=== PATIENT | male | born 1975 | race Caucasian/White ===

== ENCOUNTER 2022-07-27 03:17 | Inpatient (IN) | payer OTHER ==
[~2022-07-27] VITALS: Ht 185.4 cm; Wt 97.7 kg
[2022-07-27 04:25] LABS: Basophils # (auto) 0.1 10 ^3/uL (0-0.2); Basophils % (auto) 0.4 % (0.0-2.0); Eosinophils # (auto) 0 10 ^3/uL (0-0.8); Eosinophils % (auto) 0.3 % (0.0-7.0); Hematocrit 53.1 % (41.0-53.0); Hemoglobin 17.9 g/dL (13.5-17.5); Lymphocytes # (auto) 1.8 10 ^3/uL (0.4-5.4); Lymphocytes % (auto) 13.4 % (10.0-50.0); Mean Corpuscular Hemoglobin 32.2 pg (28.0-32.0); Mean Corpuscular Hgb Conc. 33.7 g/dL (32.0-36.0); Mean Corpuscular Volume 95.6 fL (80.0-100.0); Monocytes # (auto) 0.9 10 ^3/uL (0-1.3); Monocytes % (auto) 6.9 % (0.0-12.0); Neutrophils # (auto) 10.8 10 ^3/uL (1.6-8.6); Nucleated Red Blood Cells % 0.1 %; Red Blood Cells 5.56 10^6/uL (4.5-5.90); Red Cell Distribution Width 14.8 % (11.8-14.3); White Blood Cell 13.7 10^3/uL (4.4-10.8)
[2022-07-27 04:39] LABS: Calcium 9.5 mg/dL (8.5-10.1); Potassium 4.2 mmol/L (3.5-5.1)
[2022-07-27 04:42] LABS: BUN/Creatinine Ratio 22.5
[2022-07-27 04:45] LABS: Bilirubin, Total 1.6 mg/dL (0.2-1.0)
[2022-07-27] MEDS ORDERED: metroNIDAZOLE 500MG/100ML 100 ML IV ONE (07:15)
[2022-07-27] MEDS ORDERED: cefTRIAXone 1GM/50ML D5W 50 ML IV ONE (07:15)
[2022-07-27] MEDS ORDERED: SODIUM CHLORIDE 0.9% 1,000 ML IV ONE ×2 (07:15)
[2022-07-27] MEDS ORDERED: MORPHINE SULFATE 4 MG/ML SYR/VIAL IV ONE (07:15)
[2022-07-27] MEDS ORDERED: ONDANSETRON HCL 4 MG/2 ML VIAL IV ONE (07:15)
[2022-07-27 11:50] LABS: Amylase 50 U/L (25-115); Lipase 192 U/L (73-393)
[2022-07-27 12:33] LABS: INR 1.03 (0.9-1.15); Partial Thromboplastin Time 28.2 sec (24.6-33.4)
[2022-07-27] MEDS: SODIUM CHLORIDE 0.9% 1,000 ML IV SCH ×2 (13:15→23:12)
[2022-07-27] MEDS ORDERED: ACETAMINOPHEN 325 MG TAB PO PRN (13:15)
[2022-07-27] MEDS ORDERED: PANTOPRAZOLE 40 MG/10 ML VIAL INJ IV ONE (13:30)
[2022-07-27 14:32] LABS: Cholesterol 194 mg/dL (< 200); HDL Cholesterol 22 mg/dL (40-59); Triglycerides > 1000 mg/dL (< 150)
[2022-07-27] MEDS: HYDROcodone-ACET 5/325MG TAB PO PRN (14:42)
[2022-07-27] MEDS: metroNIDAZOLE 500MG/100ML 100 ML IV SCH ×2 (14:50→22:27)
[2022-07-27] MEDS: MORPHINE SULFATE INJ 2 MG/ml SYRG IV PRN (20:38)
[2022-07-27 20:51] LABS: Urine Bacteria NONE SEEN /hpf (None Seen); Urine Blood 1+ /uL (Negative); Urine Mucus FEW (None Seen); Urine Specific Gravity 1.037 (1.001-1.035); Urine WBC 1 /hpf (0 - 3)
[2022-07-27 21:08] LABS: Amphetamine Screen, Urine NEGATIVE (NEGATIVE); Barbiturate Scree,Urine NEGATIVE (NEGATIVE); Benzodiazephine Screen, Urine NEGATIVE (NEGATIVE); Cannabinoid Screen, Urine NEGATIVE (NEGATIVE); Cocaine Screen, Urine NEGATIVE (NEGATIVE); Opiate Scree,Urine POSITIVE (NEGATIVE); Phencyclidine Screen, Urine NEGATIVE (NEGATIVE)
[2022-07-28] MEDS: MORPHINE SULFATE INJ 2 MG/ml SYRG IV PRN (01:52)
[2022-07-28 03:44] LABS: Basophils # (auto) 0 10 ^3/uL (0-0.2); Basophils % (auto) 0.2 % (0.0-2.0); Eosinophils # (auto) 0.1 10 ^3/uL (0-0.8); Eosinophils % (auto) 0.6 % (0.0-7.0); Hematocrit 47.5 % (41.0-53.0); Hemoglobin 16.4 g/dL (13.5-17.5); Lymphocytes # (auto) 1.2 10 ^3/uL (0.4-5.4); Mean Corpuscular Hemoglobin 33.7 pg (28.0-32.0); Mean Corpuscular Hgb Conc. 34.6 g/dL (32.0-36.0); Mean Corpuscular Volume 97.5 fL (80.0-100.0); Monocytes # (auto) 0.7 10 ^3/uL (0-1.3); Monocytes % (auto) 6.6 % (0.0-12.0); Neutrophils # (auto) 8.1 10 ^3/uL (1.6-8.6); Neutrophils % (auto) 80.6 % (37.0-80.0); Red Blood Cells 4.87 10^6/uL (4.5-5.90); Red Cell Distribution Width 14.6 % (11.8-14.3); White Blood Cell 10.1 10^3/uL (4.4-10.8)
[2022-07-28 03:58] LABS: Calcium 9.3 mg/dL (8.5-10.1)
[2022-07-28 04:00] LABS: BUN/Creatinine Ratio 18.7
[2022-07-28] MEDS: metroNIDAZOLE 500MG/100ML 100 ML IV SCH (05:21)
[2022-07-28 08:08] VITALS: BP 120/84
[2022-07-28] MEDS: PANTOPRAZOLE 40 MG/10 ML VIAL INJ IV SCH (08:25)
[2022-07-28] MEDS: NICOTINE 7MG/24HR TOPICAL PATCH TD SCH ×2 (08:32→10:34)
[2022-07-28 09:00] VITALS: BP 120/84
[2022-07-28] MEDS ORDERED: cefTRIAXone 1GM/50ML D5W 50 ML IV SCH (09:00)
[2022-07-28] MEDS: SODIUM CHLORIDE 0.9% 1,000 ML IV SCH ×2 (10:33→19:15)
[2022-07-28 13:00] VITALS: BP 137/82
[2022-07-28] MEDS: HYDROcodone-ACET 5/325MG TAB PO PRN (19:58)
[2022-07-28 20:00] VITALS: BP 133/79
[2022-07-28 22:00] VITALS: BP 133/79
[2022-07-29 04:52] VITALS: BP 125/88
[2022-07-29] MEDS: SODIUM CHLORIDE 0.9% 1,000 ML IV SCH (05:15)
[2022-07-29 06:43] LABS: Basophils # (auto) 0 10 ^3/uL (0-0.2); Basophils % (auto) 0.7 % (0.0-2.0); Eosinophils # (auto) 0.2 10 ^3/uL (0-0.8); Eosinophils % (auto) 2.8 % (0.0-7.0); Hematocrit 43.2 % (41.0-53.0); Hemoglobin 14.7 g/dL (13.5-17.5); Lymphocytes # (auto) 1.4 10 ^3/uL (0.4-5.4); Lymphocytes % (auto) 23.6 % (10.0-50.0); Mean Corpuscular Hemoglobin 33.4 pg (28.0-32.0); Mean Corpuscular Hgb Conc. 34.1 g/dL (32.0-36.0); Mean Corpuscular Volume 97.9 fL (80.0-100.0); Monocytes # (auto) 0.4 10 ^3/uL (0-1.3); Monocytes % (auto) 6.7 % (0.0-12.0); Neutrophils # (auto) 3.9 10 ^3/uL (1.6-8.6); Neutrophils % (auto) 66.2 % (37.0-80.0); Nucleated Red Blood Cells % 0.2 %; Red Blood Cells 4.41 10^6/uL (4.5-5.90); Red Cell Distribution Width 14.7 % (11.8-14.3); White Blood Cell 5.8 10^3/uL (4.4-10.8)
[2022-07-29 06:53] LABS: Albumin 2.6 g/dL (3.4-5.0); Calcium 8.5 mg/dL (8.5-10.1); Potassium 3.8 mmol/L (3.5-5.1)
[2022-07-29 06:56] LABS: Total Protein 5.6 g/dL (6.4-8.2)
[2022-07-29 08:00] VITALS: BP 139/97
[2022-07-29] MEDS: PANTOPRAZOLE 40 MG/10 ML VIAL INJ IV SCH (08:43)
[2022-07-29] MEDS: NICOTINE 7MG/24HR TOPICAL PATCH TD SCH (08:46)
[2022-07-29 09:00] VITALS: BP 139/97
[2022-07-29 10:26] LABS: Hepatitis B Surface Antibody Negative (Negative)
[2022-07-29 11:03] LABS: Hepatitis A Total Antibody Positive (Negative)
[2022-07-29] MEDS ORDERED: PANT40TA2 PO (12:48)
[2022-07-29] MEDS ORDERED: GEMF-19 PO (12:51)
[2022-07-29 13:16] LABS: Hepatitis C Antibody Negative (Negative)
[2022-07-29 13:18] VITALS: BP 114/68
== END 2022-07-29 14:07 | disposition home or self-care (01) | DRG 440 ==
LOC: ER 03:22 → OVERFLOW 13:10 → WEST WING 07-28 04:15
PROVIDERS: ADMIT Registered Nurse; ATTEND Internal Medicine
DX: K85.90 Acute pancreatitis without necrosis or infection, unspecified (principal); K52.9 Noninfective gastroenteritis and colitis, unspecified; E78.1 Pure hyperglyceridemia; K76.0 Fatty (change of) liver, not elsewhere classified; Z79.899 Other long term (current) drug therapy; F17.210 Nicotine dependence, cigarettes, uncomplicated; R79.89 Other specified abnormal findings of blood chemistry; Z20.822 Contact with and (suspected) exposure to COVID-19
CPT/HCPCS: 36415; 71045; 74176; 76705; 80048; 80053; 80061; 80307; 80320; 81001; 82150; 83036; 83605; 83690; 84443; 84484; 85025; 85610; 85730; 86704; 86706; 86708; 86803; 87040; 87340; 87426; 93005; 96361; 96365; 96375; C9113; G0378; J0696; J2405; J3490

== ENCOUNTER 2022-08-16 12:59 | Inpatient (IN) | payer OTHER ==
[~2022-08-16] VITALS: Ht 185.4 cm; Wt 113.0 kg
[~2022-08-16 12:59] MED LIST: GEMF-19 PO; PANT40TA2 PO
[2022-08-16 14:26] LABS: Albumin 4.1 g/dL (3.4-5.0); BUN/Creatinine Ratio 11.1; Calcium 9.2 mg/dL (8.5-10.1); Potassium 3.9 mmol/L (3.5-5.1)
[2022-08-16 14:29] LABS: Basophils # (auto) 0 10 ^3/uL (0-0.2); Basophils % (auto) 0.7 % (0.0-2.0); Eosinophils # (auto) 0.1 10 ^3/uL (0-0.8); Eosinophils % (auto) 1.1 % (0.0-7.0); Hematocrit 48.3 % (41.0-53.0); Hemoglobin 16.8 g/dL (13.5-17.5); Lymphocytes # (auto) 1.6 10 ^3/uL (0.4-5.4); Lymphocytes % (auto) 28.8 % (10.0-50.0); Mean Corpuscular Hemoglobin 33.6 pg (28.0-32.0); Mean Corpuscular Hgb Conc. 34.9 g/dL (32.0-36.0); Mean Corpuscular Volume 96.4 fL (80.0-100.0); Monocytes # (auto) 0.4 10 ^3/uL (0-1.3); Monocytes % (auto) 6.9 % (0.0-12.0); Neutrophils # (auto) 3.5 10 ^3/uL (1.6-8.6); Neutrophils % (auto) 62.5 % (37.0-80.0); Nucleated Red Blood Cells % 0.4 %; Red Blood Cells 5.01 10^6/uL (4.5-5.90); Red Cell Distribution Width 14.5 % (11.8-14.3); White Blood Cell 5.6 10^3/uL (4.4-10.8)
[2022-08-16 14:34] LABS: Bilirubin, Total 0.6 mg/dL (0.2-1.0); Total Protein 7.1 g/dL (6.4-8.2)
[2022-08-16 16:36] LABS: Urine Bacteria NONE SEEN /hpf (None Seen); Urine Blood Negative /uL (Negative); Urine Mucus FEW (None Seen); Urine Specific Gravity 1.016 (1.001-1.035); Urine WBC <1 /hpf (0 - 3)
[2022-08-16] MEDS ORDERED: ASPirin 81 mg TAB PO ONE (20:45)
[2022-08-16] MEDS ORDERED: SODIUM CHLORIDE 0.9% 1,000 ML IV ONE (22:45)
[2022-08-16] MEDS ORDERED: LORazepam 2MG/ML-1ML VIAL IV ONE (22:45)
[2022-08-17] MEDS ORDERED: ACETAMINOPHEN 325 MG TAB PO PRN (00:45)
[2022-08-17] MEDS ORDERED: SODIUM CHLORIDE 0.9% 1,000 ML IV SCH (00:45)
[2022-08-17] MEDS ORDERED: MORPHINE SULFATE 4 MG/ML SYR/VIAL IV PRN (00:45)
[2022-08-17] MEDS ORDERED: LORazepam 0.5 MG TAB PO PRN (00:45)
[2022-08-17] MEDS ORDERED: NITROGLYCERIN 0.4 MG SL TAB SL PRN (00:45)
[2022-08-17] MEDS ORDERED: ONDANSETRON HCL 4 MG/2 ML VIAL IV PRN (00:45)
[2022-08-17] MEDS ORDERED: ALUM & MAG HYDROX-SIMETH LIQ(MAALOX) 30 ML PO ONE (00:45)
[2022-08-17] MEDS ORDERED: ZOLPIDEM TARTRATE 5 MG TAB PO PRN (00:45)
[2022-08-17] MEDS ORDERED: ENOXAPARIN SOD 100 MG/1 ML SYRINGE SC SCH (01:00)
[2022-08-17 06:31] LABS: Basophils # (auto) 0 10 ^3/uL (0-0.2); Basophils % (auto) 0.6 % (0.0-2.0); Eosinophils # (auto) 0.1 10 ^3/uL (0-0.8); Hemoglobin 15.5 g/dL (13.5-17.5); Lymphocytes # (auto) 1.2 10 ^3/uL (0.4-5.4); Monocytes # (auto) 0.4 10 ^3/uL (0-1.3); Monocytes % (auto) 8.2 % (0.0-12.0)
[2022-08-17 06:32] LABS: Calcium 9.1 mg/dL (8.5-10.1); Potassium 4.1 mmol/L (3.5-5.1)
[2022-08-17 06:34] LABS: BUN/Creatinine Ratio 18.6
[2022-08-17 06:36] LABS: Eosinophils % (auto) 2.8 % (0.0-7.0); Hematocrit 44.9 % (41.0-53.0); Lymphocytes % (auto) 25.2 % (10.0-50.0); Mean Corpuscular Hemoglobin 33.9 pg (28.0-32.0); Mean Corpuscular Hgb Conc. 34.5 g/dL (32.0-36.0); Mean Corpuscular Volume 98.4 fL (80.0-100.0); Neutrophils % (auto) 63.2 % (37.0-80.0); Nucleated Red Blood Cells % 0.3 %; Red Blood Cells 4.56 10^6/uL (4.5-5.90); Red Cell Distribution Width 14.3 % (11.8-14.3); White Blood Cell 4.8 10^3/uL (4.4-10.8)
[2022-08-17 07:00] VITALS: BP 136/88
[2022-08-17] MEDS ORDERED: DOCUSATE SOD 100 MG CAP PO SCH (10:00)
[2022-08-17] MEDS ORDERED: METOPROLOL TARTRATE 25 MG TAB PO SCH (10:00)
[2022-08-17] MEDS ORDERED: ASPirin 81 mg TAB PO SCH (10:00)
[2022-08-17] MEDS ORDERED: LISINOPRIL 10 MG TAB PO SCH (10:00)
[2022-08-17] MEDS ORDERED: PANTOPRAZOLE 40 MG TAB PO SCH (10:00)
[2022-08-17] MEDS ORDERED: GEMFIBROZIL 600 MG TAB PO SCH (10:00)
[2022-08-17] MEDS ORDERED: CLOPIDOGREL BISULFATE 75 MG TAB PO SCH (10:00)
[2022-08-17] MEDS ORDERED: ATORVASTATIN 20 MG TAB PO SCH (22:00)
== END 2022-08-17 09:45 | disposition left against medical advice (07) | DRG 311 ==
LOC: ER 12:59 → TELE 08-17 00:41
PROVIDERS: ADMIT Hospitalist; ATTEND Student in an Organized Health Care Education/Training Program
DX: I24.9 Acute ischemic heart disease, unspecified (principal); F17.210 Nicotine dependence, cigarettes, uncomplicated; Z53.21 Procedure and treatment not carried out due to patient leaving prior to being seen by health care provider
CPT/HCPCS: 36415; 71045; 80048; 80053; 81001; 84484; 85025; 85379; 87426; 93005; 96361; 96372; 96374; 96375; G0378; J2405

== ENCOUNTER 2022-09-12 08:47 | Inpatient (IN) | payer MEDICAID, OTHER ==
[~2022-09-12] VITALS: Ht 185.4 cm; Wt 94.9 kg
[2022-09-12 09:33] LABS: Basophils # (auto) 0 10 ^3/uL (0-0.2); Eosinophils # (auto) 0.2 10 ^3/uL (0-0.8); Eosinophils % (auto) 3.6 % (0.0-7.0); Hemoglobin 15.7 g/dL (13.5-17.5); Lymphocytes # (auto) 1.2 10 ^3/uL (0.4-5.4); Monocytes # (auto) 0.4 10 ^3/uL (0-1.3); Red Cell Distribution Width 16.4 % (11.8-14.3)
[2022-09-12 09:36] LABS: Basophils % (auto) 1.1 % (0.0-2.0); Hematocrit 45.9 % (41.0-53.0); Lymphocytes % (auto) 25.5 % (10.0-50.0); Mean Corpuscular Hemoglobin 34.4 pg (28.0-32.0); Mean Corpuscular Hgb Conc. 34.1 g/dL (32.0-36.0); Mean Corpuscular Volume 100.7 fL (80.0-100.0); Neutrophils # (auto) 2.8 10 ^3/uL (1.6-8.6); Neutrophils % (auto) 60.8 % (37.0-80.0); Nucleated Red Blood Cells % 0.1 %; Red Blood Cells 4.55 10^6/uL (4.5-5.90); White Blood Cell 4.6 10^3/uL (4.4-10.8)
[2022-09-12 09:49] LABS: Albumin 4.1 g/dL (3.4-5.0); Calcium 8.9 mg/dL (8.5-10.1); Potassium 3.6 mmol/L (3.5-5.1)
[2022-09-12 09:53] LABS: BUN/Creatinine Ratio 17.2; Bilirubin, Total 1.2 mg/dL (0.2-1.0); Total Protein 6.6 g/dL (6.4-8.2)
[2022-09-12] MEDS ORDERED: MAALOX PLUS or MAALOX 30 ML PO ONE (12:45)
[2022-09-12] MEDS ORDERED: ONDANSETRON HCL 4 MG/2 ML VIAL IV ONE (12:45)
[2022-09-12] MEDS ORDERED: HYDROcodone-ACET 5/325MG TAB PO ONE (12:45)
[2022-09-12] MEDS ORDERED: FAMOTIDINE (10MG/ML) 2ML VL IV ONE (12:45)
[2022-09-12] MEDS ORDERED: LIDOCAINE VISCOUS 2% 15ML UD PO ONE (12:45)
[2022-09-12] MEDS ORDERED: LACTATED RINGER'S 1,000 ML IV ONE (12:45)
[2022-09-12] MEDS ORDERED: IOHEXOL 300 MG/ML 100ML BOTTLE IJ ONE (13:20)
[2022-09-12] MEDS ORDERED: ONDANSETRON HCL 4 MG/2 ML VIAL IV PRN (17:30)
[2022-09-12] MEDS ORDERED: SODIUM CHLORIDE 0.9% 1,000 ML IV ONE (17:30)
[2022-09-12] MEDS ORDERED: THIAMINE 100mg/ml INJ (200mg/2ml VIAL) IV ONE (17:30)
[2022-09-12] MEDS ORDERED: chlordiazePOXIDE HCL 25 MG CAP PO ONE (17:30)
[2022-09-12] MEDS ORDERED: FOLIC ACID 1 MG in D5W 5% 50 ML INJ ONE (17:30)
[2022-09-12] MEDS ORDERED: METOCLOPRAMIDE HCL 5MG/ml INJ 2ml VIAL IV ONE (17:30)
[2022-09-12] MEDS ORDERED: LORazepam 2MG/ML-1ML VIAL IV ONE (17:30)
[2022-09-12] MEDS ORDERED: FOLIC ACID 1 MG TAB PO ONE (18:30)
[2022-09-12] MEDS ORDERED: MULTIPLE VITAMIN TAB PO ONE (18:30)
[2022-09-12] MEDS: chlordiazePOXIDE HCL 25 MG CAP PO SCH (19:01)
[2022-09-12 19:19] LABS: Bilirubin, Direct 0.5 mg/dL (0-0.2)
[2022-09-12 19:21] LABS: Bilirubin, Total 1.1 mg/dL (0.2-1.0)
[2022-09-12] MEDS: LACTATED RINGER'S 1,000 ML IV SCH (19:24)
[2022-09-12 20:36] LABS: Urine Bacteria NONE SEEN /hpf (None Seen); Urine Blood 1+ /uL (Negative); Urine WBC 1 /hpf (0 - 3)
[2022-09-12 20:39] LABS: Urine Specific Gravity > 1.035 (1.001-1.035)
[2022-09-12 20:54] LABS: Amphetamine Screen, Urine NEGATIVE (NEGATIVE); Barbiturate Scree,Urine NEGATIVE (NEGATIVE); Benzodiazephine Screen, Urine NEGATIVE (NEGATIVE); Cannabinoid Screen, Urine NEGATIVE (NEGATIVE); Cocaine Screen, Urine NEGATIVE (NEGATIVE); Opiate Scree,Urine NEGATIVE (NEGATIVE); Phencyclidine Screen, Urine NEGATIVE (NEGATIVE)
[2022-09-13] MEDS: LACTATED RINGER'S 1,000 ML IV SCH ×3 (02:39→17:30)
[2022-09-13] MEDS: chlordiazePOXIDE HCL 25 MG CAP PO SCH ×2 (02:41→09:39)
[2022-09-13] MEDS ORDERED: LORazepam 2MG/ML-1ML VIAL IV PRN ×2 (03:45→11:15)
[2022-09-13 04:51] LABS: Basophils # (auto) 0 10 ^3/uL (0-0.2); Basophils % (auto) 0.7 % (0.0-2.0); Eosinophils # (auto) 0.2 10 ^3/uL (0-0.8); Eosinophils % (auto) 5.4 % (0.0-7.0); Hematocrit 42.3 % (41.0-53.0); Lymphocytes % (auto) 26.4 % (10.0-50.0); Mean Corpuscular Hemoglobin 33.6 pg (28.0-32.0); Mean Corpuscular Hgb Conc. 33.1 g/dL (32.0-36.0); Mean Corpuscular Volume 101.4 fL (80.0-100.0); Monocytes # (auto) 0.4 10 ^3/uL (0-1.3); Monocytes % (auto) 9.8 % (0.0-12.0); Neutrophils # (auto) 2.2 10 ^3/uL (1.6-8.6); Neutrophils % (auto) 57.7 % (37.0-80.0); Nucleated Red Blood Cells % 0.2 %; Red Blood Cells 4.17 10^6/uL (4.5-5.90); Red Cell Distribution Width 16.2 % (11.8-14.3); White Blood Cell 3.8 10^3/uL (4.4-10.8)
[2022-09-13] MEDS: THIAMINE HCL 100 MG TAB PO SCH (09:39)
[2022-09-13] MEDS: MULTIPLE VITAMIN TAB PO SCH (09:39)
[2022-09-13] MEDS: FOLIC ACID 1 MG TAB PO SCH (09:39)
[2022-09-13] MEDS: NICOTINE 7MG/24HR TOPICAL PATCH TD SCH ×2 (09:40→09:46)
[2022-09-13] MEDS ORDERED: chlordiazePOXIDE HCL 25 MG CAP PO SCH (10:00)
[2022-09-13] MEDS ORDERED: PANTOPRAZOLE 40 MG/10 ML VIAL INJ IV SCH (10:00)
[2022-09-13] MEDS ORDERED: LORazepam 2MG/ML-1ML VIAL ONE (11:16)
[2022-09-13 17:00] VITALS: BP 129/89
[2022-09-13 17:02] VITALS: BP 129/89
[2022-09-13 21:44] VITALS: BP 144/95
[2022-09-13] MEDS: LORazepam 0.5 MG TAB PO PRN (21:56)
[2022-09-14] VITALS (7 sets, daily range): BP systolic 118–124; BP diastolic 71–87
[2022-09-14] MEDS: LACTATED RINGER'S 1,000 ML IV SCH ×4 (01:30→21:07)
[2022-09-14] MEDS ORDERED: diphenhdrAMINE HCL 25 MG CAP PO ONE (02:53)
[2022-09-14 06:30] LABS: Basophils # (auto) 0 10 ^3/uL (0-0.2); Basophils % (auto) 0.8 % (0.0-2.0); Eosinophils # (auto) 0.2 10 ^3/uL (0-0.8); Hematocrit 42.8 % (41.0-53.0); Hemoglobin 14.7 g/dL (13.5-17.5); Lymphocytes # (auto) 1.3 10 ^3/uL (0.4-5.4); Monocytes # (auto) 0.4 10 ^3/uL (0-1.3); Neutrophils # (auto) 1.7 10 ^3/uL (1.6-8.6); White Blood Cell 3.6 10^3/uL (4.4-10.8)
[2022-09-14 06:33] LABS: Eosinophils % (auto) 5.7 % (0.0-7.0); Lymphocytes % (auto) 35.5 % (10.0-50.0); Mean Corpuscular Hemoglobin 34.4 pg (28.0-32.0); Mean Corpuscular Hgb Conc. 34.2 g/dL (32.0-36.0); Mean Corpuscular Volume 100.4 fL (80.0-100.0); Monocytes % (auto) 10.2 % (0.0-12.0); Neutrophils % (auto) 47.8 % (37.0-80.0); Nucleated Red Blood Cells % 0.4 %; Red Blood Cells 4.27 10^6/uL (4.5-5.90); Red Cell Distribution Width 16.1 % (11.8-14.3)
[2022-09-14 06:34] LABS: Albumin 3.4 g/dL (3.4-5.0); Calcium 8.3 mg/dL (8.5-10.1); INR 1.04 (0.9-1.15); Potassium 3.6 mmol/L (3.5-5.1)
[2022-09-14 06:37] LABS: Bilirubin, Total 1.1 mg/dL (0.2-1.0); Total Protein 5.6 g/dL (6.4-8.2)
[2022-09-14] MEDS ORDERED: chlordiazePOXIDE HCL 25 MG CAP PO SCH (10:00)
[2022-09-14] MEDS: FOLIC ACID 1 MG TAB PO SCH (10:46)
[2022-09-14] MEDS: NICOTINE 7MG/24HR TOPICAL PATCH TD SCH (10:46)
[2022-09-14] MEDS: MULTIPLE VITAMIN TAB PO SCH (10:47)
[2022-09-14] MEDS: THIAMINE HCL 100 MG TAB PO SCH (10:47)
[2022-09-14] MEDS: LORazepam 0.5 MG TAB PO PRN ×2 (10:48→18:05)
[2022-09-15] MEDS: LORazepam 0.5 MG TAB PO PRN (00:10)
[2022-09-15 05:00] VITALS: BP 122/78
[2022-09-15] MEDS: LACTATED RINGER'S 1,000 ML IV SCH (05:08)
[2022-09-15 06:30] LABS: Potassium 3.7 mmol/L (3.5-5.1)
[2022-09-15 06:40] LABS: Albumin 3.3 g/dL (3.4-5.0); BUN/Creatinine Ratio 12.9; Bilirubin, Total 0.8 mg/dL (0.2-1.0); Calcium 8.5 mg/dL (8.5-10.1); Total Protein 5.5 g/dL (6.4-8.2)
[2022-09-15 06:58] LABS: Basophils # (auto) 0 10 ^3/uL (0-0.2); Eosinophils # (auto) 0.2 10 ^3/uL (0-0.8); Lymphocytes # (auto) 1.4 10 ^3/uL (0.4-5.4); Monocytes # (auto) 0.4 10 ^3/uL (0-1.3); Neutrophils # (auto) 1.9 10 ^3/uL (1.6-8.6)
[2022-09-15 07:00] LABS: Basophils % (auto) 0.9 % (0.0-2.0); Eosinophils % (auto) 5.1 % (0.0-7.0); Hematocrit 43.3 % (41.0-53.0); Hemoglobin 14.6 g/dL (13.5-17.5); Lymphocytes % (auto) 35.5 % (10.0-50.0); Mean Corpuscular Hemoglobin 34.5 pg (28.0-32.0); Mean Corpuscular Hgb Conc. 33.7 g/dL (32.0-36.0); Mean Corpuscular Volume 102.5 fL (80.0-100.0); Monocytes % (auto) 10.9 % (0.0-12.0); Neutrophils % (auto) 47.6 % (37.0-80.0); Nucleated Red Blood Cells % 0.2 %; Red Blood Cells 4.22 10^6/uL (4.5-5.90); Red Cell Distribution Width 16.2 % (11.8-14.3); White Blood Cell 3.9 10^3/uL (4.4-10.8)
[2022-09-15] MEDS ORDERED: chlordiazePOXIDE HCL 25 MG CAP PO SCH (07:00)
[2022-09-15 09:05] VITALS: BP 119/77
[2022-09-15] MEDS: THIAMINE HCL 100 MG TAB PO SCH (10:33)
[2022-09-15] MEDS: FOLIC ACID 1 MG TAB PO SCH (10:33)
[2022-09-15] MEDS: NICOTINE 7MG/24HR TOPICAL PATCH TD SCH (10:34)
[2022-09-15] MEDS: MULTIPLE VITAMIN TAB PO SCH (10:34)
[2022-09-15 13:00] VITALS: BP 136/95
[2022-09-15 17:05] VITALS: BP 135/90
[2022-09-15 22:00] VITALS: BP 134/82
[2022-09-15] MEDS ORDERED: CITALOPRAM HYDROBR 20 MG TAB PO SCH (22:00)
[2022-09-16] MEDS ORDERED: diphenhdrAMINE HCL 25 MG CAP PO ONE (04:00)
[2022-09-16 05:00] VITALS: BP 117/78
[2022-09-16 06:14] LABS: Basophils # (auto) 0 10 ^3/uL (0-0.2); Eosinophils # (auto) 0.2 10 ^3/uL (0-0.8); Mean Corpuscular Hemoglobin 34.2 pg (28.0-32.0); Nucleated Red Blood Cells % 0.1 %
[2022-09-16 06:19] LABS: Basophils % (auto) 0.7 % (0.0-2.0); Hemoglobin 14.4 g/dL (13.5-17.5); Lymphocytes # (auto) 1.2 10 ^3/uL (0.4-5.4); Lymphocytes % (auto) 27.4 % (10.0-50.0); Mean Corpuscular Hgb Conc. 33.4 g/dL (32.0-36.0); Mean Corpuscular Volume 102.2 fL (80.0-100.0); Monocytes # (auto) 0.6 10 ^3/uL (0-1.3); Monocytes % (auto) 12.3 % (0.0-12.0); Neutrophils # (auto) 2.5 10 ^3/uL (1.6-8.6); Neutrophils % (auto) 54.6 % (37.0-80.0); Red Blood Cells 4.21 10^6/uL (4.5-5.90); Red Cell Distribution Width 16.2 % (11.8-14.3); White Blood Cell 4.5 10^3/uL (4.4-10.8)
[2022-09-16 06:33] LABS: Potassium 3.6 mmol/L (3.5-5.1)
[2022-09-16 06:45] LABS: Albumin 3.6 g/dL (3.4-5.0); BUN/Creatinine Ratio 20.4; Bilirubin, Total 0.9 mg/dL (0.2-1.0); Calcium 8.5 mg/dL (8.5-10.1); Total Protein 5.8 g/dL (6.4-8.2)
[2022-09-16 09:00] VITALS: BP 104/62
[2022-09-16] MEDS: MULTIPLE VITAMIN TAB PO SCH (10:35)
[2022-09-16] MEDS: THIAMINE HCL 100 MG TAB PO SCH (10:36)
[2022-09-16] MEDS: FOLIC ACID 1 MG TAB PO SCH (10:37)
[2022-09-16] MEDS ORDERED: ESCI5TAB PO ×2 (10:39→16:15)
[2022-09-16 11:50] LABS: Hepatitis C Antibody Negative (Negative)
[2022-09-16 13:00] VITALS: BP 117/70
[2022-09-16] MEDS ORDERED: ACAM1TAB4 OR (16:15)
[2022-09-16] MEDS ORDERED: THIA100T10 PO (16:15)
[2022-09-16 17:02] VITALS: BP 122/71
[2022-09-16 17:40] VITALS: BP 122/71
== END 2022-09-16 18:15 | disposition home or self-care (01) | DRG 433 ==
LOC: ER 08:47 → TELE 18:22 → TELE-EAST 09-13 17:11
PROVIDERS: ADMIT Registered Nurse; ATTEND Student in an Organized Health Care Education/Training Program
DX: K74.60 Unspecified cirrhosis of liver (principal); F10.239 Alcohol dependence with withdrawal, unspecified; K86.1 Other chronic pancreatitis; F17.210 Nicotine dependence, cigarettes, uncomplicated; D69.6 Thrombocytopenia, unspecified; F43.10 Post-traumatic stress disorder, unspecified; F31.9 Bipolar disorder, unspecified; Z20.822 Contact with and (suspected) exposure to COVID-19; R74.8 Abnormal levels of other serum enzymes; H02.409 Unspecified ptosis of unspecified eyelid; Z82.49 Family history of ischemic heart disease and other diseases of the circulatory system; Z56.0 Unemployment, unspecified; Z87.19 Personal history of other diseases of the digestive system
CPT/HCPCS: 36415; 74177; 76705; 80053; 80307; 80320; 81001; 82150; 82247; 82248; 82977; 83690; 83735; 84484; 85025; 85610; 86803; 87340; 87426; 96361; 96374; 96375; C9113; G0378; J2405; J3490; J7060

== ENCOUNTER 2022-11-08 14:49 | Emergency (ER) | payer OTHER ==
[~2022-11-08] VITALS: Ht 185.4 cm; Wt 88.6 kg
[~2022-11-08 14:49] MED LIST changes: +ACAM1TAB4 OR; +ESCI5TAB PO; +THIA100T10 PO
[2022-11-08] MEDS ORDERED: SODIUM CHLORIDE 0.9% 1,000 ML IV ONE (15:15)
[2022-11-08] MEDS ORDERED: LORazepam 2MG/ML-1ML VIAL IV ONE (15:15)
[2022-11-08 15:38] LABS: Basophils # (auto) 0 10 ^3/uL (0-0.2); Eosinophils # (auto) 0.1 10 ^3/uL (0-0.8); Hematocrit 49.3 % (41.0-53.0); Mean Corpuscular Volume 100.5 fL (80.0-100.0); Monocytes # (auto) 0.5 10 ^3/uL (0-1.3); Neutrophils # (auto) 3.7 10 ^3/uL (1.6-8.6); White Blood Cell 5.2 10^3/uL (4.4-10.8)
[2022-11-08 15:41] LABS: Basophils % (auto) 0.4 % (0.0-2.0); Eosinophils % (auto) 1.3 % (0.0-7.0); Hemoglobin 17.2 g/dL (13.5-17.5); Lymphocytes # (auto) 0.8 10 ^3/uL (0.4-5.4); Lymphocytes % (auto) 16.3 % (10.0-50.0); Mean Corpuscular Hemoglobin 35.1 pg (28.0-32.0); Mean Corpuscular Hgb Conc. 34.9 g/dL (32.0-36.0); Monocytes % (auto) 9.5 % (0.0-12.0); Neutrophils % (auto) 72.5 % (37.0-80.0); Nucleated Red Blood Cells % 0.3 %
[2022-11-08 15:52] LABS: Albumin 4.2 g/dL (3.4-5.0); BUN/Creatinine Ratio 19.6 (10.0-20.0); Calcium 9.1 mg/dL (8.5-10.1); Potassium 4.1 mmol/L (3.5-5.1)
[2022-11-08 15:55] LABS: Bilirubin, Total 2.8 mg/dL (0.2-1.0); Total Protein 7.6 g/dL (6.4-8.2)
[2022-11-08] MEDS ORDERED: CHL10C PO (16:56)
[2022-11-08 18:35] VITALS: BP 140/99
== END 2022-11-08 18:39 | disposition home or self-care (01) ==
LOC: ER 14:49
DX: F10.939 Alcohol use, unspecified with withdrawal, unspecified (principal); E78.5 Hyperlipidemia, unspecified; F17.210 Nicotine dependence, cigarettes, uncomplicated; Z79.899 Other long term (current) drug therapy
CPT/HCPCS: 36415; 80053; 80320; 85025; 93005; 96361; 96374; 99284; J2060; J7030

== ENCOUNTER 2025-05-06 13:15 | Emergency (ER) | payer OTHER ==
[~2025-05-06] VITALS: Ht 175.3 cm; Wt 100.0 kg
[~2025-05-06 13:15] MED LIST changes: +ACAM1TAB OR; -ACAM1TAB4 OR; +CHL10C PO; -GEMF-19 PO; +GEMF-66 PO
--- NOTE | 2025-05-06 13:33 | ED.PDOC ---
HPI Comments 49-year-old male who presents to the ED via EMS with a chief complaint of chest pain onset today about 20 minutes prior to ED arrival. Per EMS, patient was walking home from [facility] when he began experiencing left-sided, nonradiating chest pain, rates pain 10/10. Upon EMS arrival, patient was hypotensive with BP 95 systolic, was given IV fluids in route to ED, BP improved to 130 systolic. Patient states he had 1 pint of EtOH today, has been under stress recently. PMHx HLD. Denies any shortness of breath, dizziness, fever, chills, nausea, vomiting, diarrhea, blurred vision, numbness/tingling. No other symptoms or modifying factors present at this time. Time Seen by MD: 13:25 Primary Care Provider: NM Reviewed Notes: Medications, Allergies Allergies: Coded Allergies: NO KNOWN ALLERGIES (Unverified , 09/13/22) Home Meds Active Scripts Chlordiazepoxide Hcl (Ni-1) (I (Librium) 10 Mg Cap, 10 MG PO BID for 7 Days, #14 CAP Prov:DEANNA WILLARD MD 11/08/22 Acamprosate Calcium (ACAMPROSATE CALCIUM DR) 333 Mg Tab, 666 MG OR TID for 30 Days, #180 TAB Prov:AYDEN BASS MD 09/16/22 Thiamine Hcl (VITAMIN B-1) 100 Mg Tb, 100 MG PO DAILY for 30 Days, #30 TAB Prov:AYDEN BASS MD 09/16/22 Escitalopram Oxalate (Lexapro) 5 Mg Tab, 1 TAB PO DAILY for 30 Days, #30 TAB 2 Refills Prov:AYDEN BASS MD 09/16/22 Escitalopram Oxalate (Lexapro) 5 Mg Tab, 5 MG PO HS for 30 Days, #30 TAB Prov:AYDEN BASS MD 09/16/22 Gemfibrozil (Gemfibrozil) 600 Mg Tab, 600 MG PO BID for 30 Days, #60 TAB 2 Refills Prov:NILES SHARMA MD 07/29/22 Pantoprazole Sodium Sesquihydr (Protonix) 40 Mg Tab, 40 MG PO DAILY for 15 Days, #15 TAB Prov:NILES SHARMA MD 07/29/22 Information Source: Patient, Emergency Med Personnel Mode of Arrival: EMS Severity: Moderate Timing: Minutes Duration: Since onset Prehospital treatment: IVF Location: Chest (L) Radiation: No Radiation Quality: Sharp Onset: At Rest Cardiac Risk Factors: Hyperlipidemia PE Risk Factors: None History of: None Modifying Factors: Nothing Past Medical History PAST MEDICAL HISTORY: High Lipids Surgical History: Denies all surgeries Family History Family History: Unknown Social History Smoker: Cigarettes Alcohol: Heavy Drugs: Denies Drug Use Lives In: Home Constitutional: denies: chills, diaphoresis, fatigue, fever, malaise, sweats, weakness, others EENTM: denies: blurred vision, double vision, ear bleeding, ear discharge, ear drainage, ear pain, ear ringing, eye pain, eye redness, hearing loss, mouth pain, mouth swelling, nasal discharge, nose bleeding, nose congestion, nose pain, photophobia, tearing, throat pain, throat swelling, voice changes, others Respiratory: denies: cough, hemoptysis, orthopnea, SOB at rest, shortness of breath, SOB with excertion, stridor, wheezing, others Cardiovascular: reports: chest pain; denies: dizzy spells, diaphoresis, Dyspnea on exertion, edema, irregular heart beat, left arm pain, lightheadedness, palpitations, PND, syncope, others Gastrointestinal: denies: abdomen distended, abdominal pain, blood streaked bowels, constipated, diarrhea, dysphagia, difficulty swallowing, hematemesis, melena, nausea, poor appetite, poor fluid intake, rectal bleeding, rectal pain, vomiting, others Genitourinary: denies: burning, dysuria, flank pain, frequency, hematuria, incontinence, penile discharge, penile sore, pain, testicle pain, testicle swelling, urgency, others Neurological: denies: dizziness, fainting, headache, left sided numbness, left sided weakness, numbness, paresthesia, pre-existing deficit, right sided numbness, right sided weakness, seizure, speech problems, tingling, tremors, weakness, others Musculoskeletal: denies: back pain, gout, joint pain, joint swelling, muscle pa in, muscle stiffness, neck pain, others Integumetry: denies: bruises, change in color, change in hair/nails, dryness, laceration, lesions, lumps, rash, wounds, others Allergic/Immunocompromised: denies: Difficulty Healing, Frequent Infections, Hives, Itching, others Hematologic/Lymphatic: denies: anemia, blood clots, easy bleeding, easy bruising, swollen glands, others Endocrine: denies: excessive hunger, excessive sweating, excessive thirst, excessive urination, flushing, intolerance to cold, intolerance to heat, unexplained weight gain, unexplained weight loss, others Psychiatric: reports: others (ETOH intoxication); denies: anxiety, bipolar disorder, depression, hopeless, panic disorder, schizophrenia, sleepless, suicidal All Other Systems: Reviewed and Negative Physical Exam General Appearance: Moderate Distress, Normal HEENT: Normal ENT Inspection, Pharynx Normal, TMs Normal Neck: Full Range of Motion, Non-Tender, Normal, Normal Inspection Respiratory: Chest Non-Tender, Lungs Clear, No Accessory Muscle Use, No Respiratory Distress, Normal Breath Sounds Cardiovascular: No Edema, No JVD, No Murmur, No Gallop, Normal Peripheral Pulses, Regular Rate/Rhythm Breast Exam: Deferred Gastrointestinal: No Organomegaly, Non Tender, No Pulsatile Mass, Normal Bowel Sounds, Soft Genitalia: Deferred Pelvic: Deferred Rectal: Deferred Extremities: No calf tenderness, Normal capillary refill, Normal inspection, Normal range of motion, Non-tender, No pedal edema Musculoskeletal : Apperance: Normal 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 Was a procedure done?: No CP Differential Dx Differential Diagnosis: A-fib, A-Flutter, Angina, Anxiety / Panic Attack, Atrial Dysrhythmia, Electrolyte Disorder X-Ray, Labs, Meds, VS Vital Signs Date Time Temp Pulse Resp B/P (MAP) Pulse Ox O2 Delivery O2 Flow Rate FiO2 05/06/25 17:09 98.7 84 16 154/99 (117) 95 98.7 05/06/25 17:09 84 17 95 Room Air 05/06/25 17:03 154/99 05/06/25 16:23 144/95 05/06/25 14:20 85 9/15/25 13:21 90 05/06/25 13:15 98.8 105 17 135/79 96 98.8 Lab Test 05/06/25 14:24 05/06/25 13:28 Range/Units Troponin I High Sensitivity < 3 L < 3 L </=54 ng/L White Blood Count 9.5 4.4-10.8 10^3/uL Red Blood Count 5.15 4.5-5.90 10^6/uL Hemoglobin 16.4 13.5-17.5 g/dL Hematocrit 46.7 41.0-53.0 % Mean Corpuscular Volume 90.8 80.0-100.0 fL Mean Corpuscular Hemoglobin 31.9 28.0-32.0 pg Mean Corpuscular Hemoglobin Concent 35.1 32.0-36.0 g/dL Red Cell Distribution Width 13.9 11.8-14.3 % Platelet Count 185 140-450 10^3/uL Mean Platelet Volume 8.5 6.9-10.8 fL Neutrophils (%) (Auto) 65.5 37.0-80.0 % Lymphocytes (%) (Auto) 25.8 10.0-50.0 % Monocytes (%) (Auto) 7.4 0.0-12.0 % Eosinophils (%) (Auto) 0.6 0.0-7.0 % Basophils (%) (Auto) 0.7 0.0-2.0 % Neutrophils # (Auto) 6.2 1.6-8.6 10 ^3/uL Lymphocytes # (Auto) 2.5 0.4-5.4 10 ^3/uL Monocytes # (Auto) 0.7 0-1.3 10 ^3/uL Eosinophils # (Auto) 0.1 0-0.8 10 ^3/uL Basophils # (Auto) 0.1 0-0.2 10 ^3/uL Nucleated Red Blood Cells 0.0 % Sodium Level 140 136-145 mmol/L Potassium Level 3.9 3.5-5.1 mmol/L Chloride Level 102 98-107 mmol/L Carbon Dioxide Level 23 20-31 mmol/L Anion Gap 15 5-15 Blood Urea Nitrogen 12 9-23 mg/dL Creatinine 0.94 0.700-1.30 mg/dL Glomerular Filtration Rate Calc 101 >90 mL/min BUN/Creatinine Ratio 12.8 10.0-20.0 Serum Glucose 105 74-106 mg/dL Calcium Level 9.2 8.7-10.4 mg/dL Current Medications Medications (Trade) Dose Ordered Sig/Feroz Route Start Time Stop Time Status Last Admin Aspirin 325 mg ONCE ONCE PO 05/06/25 13:45 05/06/25 13:46 DC 05/06/25 16:16 Nitroglycerin (Ntrostat Sublingual) 0.4 mg ONCE ONCE SL 05/06/25 13:45 05/06/25 13:46 DC 05/06/25 16:23 Belladonna Alkaloids/ Phenobarbital ( Elixir) 10 ml ONCE ONCE PO 05/06/25 15:30 05/06/25 15:31 DC 05/06/25 16:22 Al Hydrox/Mg Hydrox/Simethicone (Maalox Plus) 30 ml ONCE ONCE PO 05/06/25 15:30 05/06/25 15:31 DC 05/06/25 16:22 Lidocaine HCl (Xylocaine 2% Viscous) 15 ml ONCE ONCE PO 05/06/25 15:30 05/06/25 15:31 DC 05/06/25 16:21 Patient alert. Complaining of chest pain. Possible anxiety related causing his symptom. Vitals stable. Answering questions. EKG reviewed does not show any acute changes. WBC within normal limits. Cardiac marker within normal limits. Was given aspirin. Was given nitro. No leg swelling. No shortness a breath. No discoloration. Alcohol related chest pain. Gastritis. Was given prescription of Protonix. Explained to the patient. Continue to monitor. Age is only risk factor. Was told to follow up with his primary care physician. Was told to come back if there is any problem. Time of 1ST Reevaluation: 13:55 Reevaluation 1ST: Improved Patient Education/Counseling: Diagnosis, Treatment, Prognosis Family Education/Counseling: No Family Present SEPSIS Sepsis Screen Physician Orders Electrocardigram (05/06/25 13:20) Electrocardigram (05/06/25 14:20) Electrocardigram (05/06/25 16:20) Chest Portable (05/06/25 13:36) Urinalysis (05/06/25 13:36) Vital Signs Date Time Temp Pulse Resp B/P (MAP) Pulse Ox O2 Delivery O2 Flow Rate FiO2 05/06/25 17:09 98.7 84 16 154/99 (117) 95 98.7 05/06/25 17:09 84 17 95 Room Air 05/06/25 17:03 154/99 05/06/25 16:23 144/95 05/06/25 14:20 85 05/06/25 13:21 90 05/06/25 13:15 98.8 105 17 135/79 96 98.8 Laboratory Tests Test 05/06/25 13:28 White Blood Count 9.5 10^3/uL (4.4-10.8) Medications Medications Dose Ordered Sig/Feroz Route Start Time Stop Time Status Last Admin Dose Admin Al Hydrox/Mg Hydrox/Simethicone 30 ml ONCE ONCE PO 05/06/25 15:30 05/06/25 15:31 DC 05/06/25 16:22 Aspirin 325 mg ONCE ONCE PO 05/06/25 13:45 05/06/25 13:46 DC 05/06/25 16:16 Belladonna Alkaloids/ Phenobarbital 10 ml ONCE ONCE PO 05/06/25 15:30 05/06/25 15:31 DC 05/06/25 16:22 Lidocaine HCl 15 ml ONCE ONCE PO 05/06/25 15:30 05/06/25 15:31 DC 05/06/25 16:21 Nitroglycerin 0.4 mg ONCE ONCE SL 05/06/25 13:45 05/06/25 13:46 DC 05/06/25 16:23 Departure 1 Departure Time of Disposition: 15:27 Impression: Primary Impression: Alcohol abuse Additional Impressions: Anxiety Gastritis Qualified Codes: K29.20 - Alcoholic gastritis without bleeding Disposition: 01 HOME / SELF CARE / HOMELESS Condition: Good Discharged With: Self Critical Care Note Critical Care Time?: No Stability Stability form required: No Heart Score Heart Score: Heart Score Response (Comments) Value History Slightly Suspicious 0 EKG Normal 0 Age 45-64 1 Risk Factors 1 or 2 risk factors 1 Troponin Normal limit 0 Total 2 I personally scribed for ANNELIESE COHEN MD ([email or web address]) on 05/06/25 at 13:33. Electronically submitted by Ivonne Goldstein ([email or web address]). ANNELIESE COHEN MD May 06, 2025 13:33
--- NOTE | 2025-05-06 14:08 | DVH ---
CHEST RADIOGRAPH Indication: sob Technique: Single frontal view of the chest was obtained Comparison: CXRP on DOS: 08/16/22 FINDINGS: Lines and Tubes: None Lungs: No focal consolidation. Pleura: No effusion. No pneumothorax. Cardiomediastinal contours: Unremarkable Bones: No acute osseous abnormality. IMPRESSION: No acute cardiopulmonary disease.
[2025-05-06 14:30] LABS: Hematocrit 46.7 % (41.0-53.0); Hemoglobin 16.4 g/dL (13.5-17.5); Mean Corpuscular Hemoglobin 31.9 pg (28.0-32.0); Mean Corpuscular Volume 90.8 fL (80.0-100.0); Nucleated Red Blood Cells % 0.0 %
[2025-05-06 14:39] LABS: Chloride 102 mmol/L (98-107); Potassium 3.9 mmol/L (3.5-5.1); Sodium 140 mmol/L (136-145)
[2025-05-06 14:40] LABS: Anion Gap 15 (5-15); Calcium 9.2 mg/dL (8.7-10.4); Carbon Dioxide 23 mmol/L (20-31)
[2025-05-06 14:45] LABS: BUN/Creatinine Ratio 12.8 (10.0-20.0); Blood Urea Nitrogen 12 mg/dL (9-23); Glucose 105 mg/dL (74-106)
[2025-05-06] MEDS ORDERED: LIDOCAINE VISCOUS 2% 15ML UD ONE (16:18)
[2025-05-06] MEDS: LIDOCAINE VISCOUS 2% 15ML UD PO ONE (16:21)
[2025-05-06] MEDS: MAALOX PLUS or MAALOX 30 ML PO ONE (16:22)
[2025-05-06] MEDS: DONNATAL 5ml ORAL Elix (BELLADONNA ALK-PHENOBARB) PO ONE (16:22)
[2025-05-06] MEDS ORDERED: MAALOX PLUS or MAALOX 30 ML ONE (16:23)
[2025-05-06] MEDS: NITROGLYCERIN 0.4 MG SL TAB SL ONE (16:23)
[2025-05-06] MEDS ORDERED: NITROGLYCERIN 0.4 MG SL TAB SL ONE (16:24)
[2025-05-06 17:09] VITALS: BP 154/99; PULSE 84; RESP 17; TEMP 98.7; O2SAT 95
--- NOTE | 2025-05-07 06:38 | ECG ---
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
--- NOTE | 2025-05-07 06:39 | ECG ---
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
== END 2025-05-06 17:12 | disposition home or self-care (01) ==
LOC: EDBD 13:15 → ER 13:15
DX: F10.10 Alcohol abuse, uncomplicated (principal); F41.9 Anxiety disorder, unspecified; K29.70 Gastritis, unspecified, without bleeding; Z79.899 Other long term (current) drug therapy
CPT/HCPCS: 36415; 71045; 80048; 84484; 85025; 93005